=== PATIENT | male | born 1940 | race Caucasian/White ===

== ENCOUNTER 2023-03-28 14:26 | Outpatient (RCR) | payer MEDICARE, OTHER ==
[2023-03-28] MEDS ORDERED: LEUPROLIDE 45 MG ELIGARD SQ SCH (15:00)
== END 2023-04-05 | disposition home or self-care (01) ==
LOC: ONC 14:26
PROVIDERS: ATTEND Internal Medicine Hematology & Oncology
DX: Z51.11 Encounter for antineoplastic chemotherapy (principal); C61 Malignant neoplasm of prostate
CPT/HCPCS: 96402